=== PATIENT | female | born 1955 | race Native Hawaiian/Other Pacific Islander ===

== ENCOUNTER 2017-01-19 09:46 | Emergency (ER) | payer MEDICARE, OTHER ==
[2017-01-19 09:51] VITALS: RESP 18
[2017-01-19] MEDS ORDERED: Sodium Chloride 0.9% 1,000 ML IV ONE (10:46)
[2017-01-19] MEDS ORDERED: Sodium Chloride 0.9% 1,000 ML ONE (11:00)
--- NOTE | 2017-01-19 11:15 | C.PDOC ---
History Of Present Illness 61 y/o female sent to ED by PMD, Dr. Henry, for evaluation of non-bloody diarrhea associated with abdominal cramps, and dysuria for the past 2 weeks. Pt was seen by PMD today and told to report to ED to be evaluated for C-diff. Denies vaginal bleeding, vaginal discharge, nausea, vomiting, or fever. Time Seen by Provider: 01/19/17 10:06 Chief Complaint (Nursing): GI Problem History Per: Patient History/Exam Limitations: no limitations Onset/Duration Of Symptoms: Days Current Symptoms Are (Timing): Still Present Location Of Pain/Discomfort: Diffuse Radiation Of Pain To:: None Quality Of Discomfort: "Pain" Associated Symptoms: Diarrhea. denies: Loss Of Appetite, Back Pain, Chest Pain , Constipation Exacerbating Factors: None Alleviating Factors: None Recent travel outside of the [place]: No Additional History Per: Patient Abnormal Vaginal Bleeding: No Past Medical History Reviewed: Historical Data, Nursing Documentation, Vital Signs Vital Signs: Last Vital Signs Temp 98.4 F 01/19/17 15:01 Pulse 83 01/19/17 15:01 Resp 18 01/19/17 15:01 BP 149/89 01/19/17 15:01 Pulse Ox 99 01/19/17 15:04 - Medical History PMH: Arthritis, Asthma, HTN, Hypercholesterolemia Family History: States: Unknown Family Hx - Social History Hx Tobacco Use: No Hx Alcohol Use: No Hx Substance Use: No - Immunization History Hx Tetanus Toxoid Vaccination: No Hx Influenza Vaccination: Yes (2017) Hx Pneumococcal Vaccination: No Review Of Systems Except As Marked, All Systems Reviewed And Found Negative. Constitutional: Negative for: Fever, Chills Gastrointestinal: Positive for: Abdominal Pain, Diarrhea. Negative for: Nausea , Vomiting, Constipation, Melena, Hematochezia Genitourinary: Positive for: Dysuria. Negative for: Frequency, Hematuria, Vaginal Discharge, Vaginal Bleeding Musculoskeletal: Negative for: Back Pain Physical Exam - Physical Exam Appears: Non-toxic, No Acute Distress Skin: Normal Color, Warm, Dry Head: Atraumatic, Normacephalic Eye(s): bilateral: Normal Inspection Oral Mucosa: Moist Neck: Supple Chest: Symmetrical Cardiovascular: Rhythm Regular, No Murmur Respiratory: Normal Breath Sounds, No Rales, No Rhonchi, No Wheezing Gastrointestinal/Abdominal: Soft, No Tenderness, No Guarding, No Rebound Back: No CVA Tenderness Extremity: Normal ROM, No Pedal Edema Neurological/Psych: Oriented x3, Normal Speech ED Course And Treatment - Laboratory Results Result Diagrams: 01/19/17 11:20 01/19/17 11:20 ECG: Interpreted By Me, Viewed By Me ECG Rhythm: Sinus Rhythm ECG Interpretation: No Acute Changes Interpretation Of ECG: Normal axis, normal intervals. Non-specific ST wave changes. Rate From EC (bpm) O2 Sat by Pulse Oximetry: 99 (RA) Pulse Ox Interpretation: Normal Medical Decision Making Medical Decision Making: Blood work, UA, EKG, Obstructive series x-ray ordered and reviewed. C-diff ordered. Pt was given IV fluids. 12:43 Still waiting to send stool sample. Pt looks well clinically. Pt states she would like to wait here to give stool sample. 2:53 Pt was observed for 5 hours without diarrhea. Abdomen is soft and non-tedner. Unable to provide stool sample. Urine shows leukocytosis, will prescribe antibiotics. Pt will be discharged home, instructed to follow up with PMD tomorrow. Pt was given container for stool sample. Disposition Counseled Patient/Family Regarding: Studies Performed, Diagnosis, Need For Followup, Rx Given - Disposition Disposition: HOME/ ROUTINE Disposition Time: 14:50 Condition: GOOD Additional Instructions: follow up with your doctor tomorrow call to make an appointment take medications as prescribed return to hospital if symptoms worsens or progress please return containers with stool samples Prescriptions: Ciprofloxacin HCl [Cipro] 500 mg PO BID #20 tablet Metronidazole [Flagyl] 500 mg PO BID #20 tablet Instructions: Urinary Tract Infection in Women (DC), Acute Diarrhea (ED) Forms: [employer] (Turkmen), General Discharge Instructions - Clinical Impression Clinical Impression: Diarrhea, UTI (urinary tract infection) - Scribe Statement The provider has reviewed the documentation as recorded by the Qasimibmedina Goodwin All medical record entries made by the Scribe were at my direction and personally dictated by me. I have reviewed the chart and agree that the record accurately reflects my personal performance of the history, physical exam, medical decision making, and the department course for this patient. I have also personally directed, reviewed, and agree with the discharge instructions and disposition.
[2017-01-19 11:25] LABS: BASO % 0.6 % (0.0-2.0); EOS # 0.1 K/uL (0.0-0.7); EOS % 1.4 % (0.0-4.0); HEMATOCRIT 41.9 % (34.0-47.0); LYMPH # 2.4 K/uL (1.0-4.3); LYMPH % 37.8 % (20.0-40.0); MEAN CELL VOLUME 94.3 fL (81.0-99.0); MEAN CORPUSCULAR HEMOGLOBIN 32.3 pg (27.0-31.0); MEAN CORPUSCULAR HGB CONC 34.2 g/dL (33.0-37.0); MEAN PLATELET VOLUME 8.6 fL (7.2-11.7); MONO # 0.4 K/uL (0.0-0.8); MONO % 6.6 % (0.0-10.0); RED CELL DISTRIBUTION WIDTH 13.2 % (11.5-14.5); WHITE BLOOD COUNT 6.2 K/uL (4.8-10.8)
[2017-01-19 11:30] LABS: RBC URINE 9 /hpf (0-3); URINE BACTERIA OCC (<OCC); URINE BILIRUBIN NEGATIVE (NEGATIVE); URINE BLOOD 1+ (NEGATIVE); URINE COLOR Yellow (YELLOW); URINE GLUCOSE (UA) 2+ mg/dL (Normal); URINE KETONE NEGATIVE (NEGATIVE); URINE LEUKOCYTE ESTERASE 2+ Leu/uL (Negative); URINE PROTEIN NEGATIVE (NEGATIVE); URINE UROBILINOGEN NORMAL mg/dL (0.2-1.0); WBC URINE 17 /hpf (0-5)
[2017-01-19 11:39] LABS: CHLORIDE 98 mmol/L (98-107); POTASSIUM 4.5 mmol/L (3.6-5.2); SODIUM 134 mmol/L (132-148)
[2017-01-19 11:41] LABS: AST/SGOT 38 U/L (14-36); BILIRUBIN,TOTAL 1.2 mg/dL (0.2-1.3); CARBON DIOXIDE 24 mmol/L (22-30); GFR AFRICAN-AMERICAN > 60
[2017-01-19 11:42] LABS: ALB/GLOB RATIO 1.2 (1.0-2.1); ALKALINE PHOSPHATASE 81 U/L (38-126); ALT/SGPT 49 U/L (9-52); BLOOD UREA NITROGEN 17 mg/dL (7-17); CALCIUM 8.6 mg/dl (8.6-10.4); GLUCOSE,RANDOM 209 mg/dL (65-105); TOTAL PROTEIN 7.6 g/dL (6.3-8.3)
--- NOTE | 2017-01-19 12:26 | RAD ---
PROCEDURE: Radiographs of the chest and abdomen (obstructive series) HISTORY: abd pain COMPARISON: No prior. TECHNIQUE: AP radiograph of the chest, with upright and supine radiographs of the abdomen. FINDINGS: CHEST: Lungs: Clear. Cardiovascular: Mildly prominent cardiac silhouette. Consider possible technical magnification given frontal technique. No pulmonary vascular derangement identified. Pleura: No pleural fluid. No pneumothorax. Other findings: None. ABDOMEN AND PELVIS: Bowel: Unremarkable bowel gas pattern. No evidence of mechanical obstruction. Free air: None. Bones: Unremarkable. Other findings: Medial left upper quadrant partially calcified lesion measuring 3.9 cm greatest dimension is of uncertain etiology. Consider possible partially calcified splenic artery aneurysm no calcified left lobe hepatic lesion or stomach lesion or possible as well as splenic lesion. IMPRESSION: Nonobstructive bowel gas pattern. No free intraperitoneal gas grossly evident. Partially calcified lesion left upper quadrant may reflect splenic artery aneurysm though soft tissue mass is not completely excluded either. Consider follow-up abdomen ultrasound or abdomen and pelvis CT with oral and intravenous contrast enhancement.
[2017-01-19 15:02] VITALS: BP 149/89; PULSE 83; TEMP 98.4
[2017-01-19 15:05] VITALS: O2SAT 99
--- NOTE | 2017-01-24 11:13 | CARD ---
APPROVED REPORT EKG Measurement Heart [id number] <Conclusion> Normal sinus rhythm Possible Inferior infarct, age undetermined Abnormal ECG
== END 2017-01-19 15:00 | disposition home or self-care (01) ==
LOC: C.ER 09:46
DX: R19.7 Diarrhea, unspecified (principal); N39.0 Urinary tract infection, site not specified
CPT/HCPCS: 74022; 80053; 81001; 83690; 85025; 87086; 87181; 99285; J7040